=== PATIENT | male | born 1975 | race Caucasian/White ===

== ENCOUNTER 2020-07-16 07:56 | Outpatient (REF) | payer OTHER, SELFPAY ==
--- NOTE | 2020-07-16 08:12 | XR_ITS ---
EXAMINATION: XR SHOULDER, RIGHT CLINICAL INFORMATION: Right arm pain COMPARISON: None TECHNIQUE: AP external rotation, Grashey, scapular Y, and axillary views of the right shoulder. FINDINGS: The bones and soft tissues are normal. No fracture. Glenohumeral and acromioclavicular alignment is anatomic with normal joint space. No abnormal soft tissue calcifications. XR/XR shoulder RT min 2V IMPRESSION: Normal right shoulder.
[2020-07-16 09:35] LABS: MANUAL DIFF FLAG NO
[2020-07-16 09:41] LABS: Basophils Percent Auto 0.7 % (0-2); Eosinophils Absolute Auto 0.1 X10*3/uL (0.0-0.4); Eosinophils Percent Auto 1.9 % (0-4); Hematocrit 42.7 % (42-52); Hemoglobin 14.7 g/dl (14.0-18.0); Imm Gran Abs Auto 0.02 X10*3/uL (0.00-0.03); Imm Gran Pct Auto 0.3 % (0.0-0.4); Lymphocytes Absolute Auto 1.7 X10*3/uL (1.2-4.9); Lymphocytes Percent Auto 28.4 % (20-40); Mean Corpuscular HGB Conc 34.4 g/dl (31.0-36.0); Mean Corpuscular Hemoglobin 30.1 pg (27.0-33.0); Mean Corpuscular Volume 87.3 fL (80-98); Mean Platelet Volume 10.1 fL (9.4-12.4); Monocytes Absolute Auto 0.4 X10*3/uL (0.1-1.2); Monocytes Percent Auto 7.5 % (2-11); Neutrophils Absolute Auto 3.6 X10*3/uL (2.0-8.3); Neutrophils Percent Auto 61.2 % (45-73); Platelet Count 304 X10*3/uL (160-400); Red Blood Count 4.89 X10*6/uL (4.60-5.80); Red Cell Distribution Width 11.9 % (11.0-16.0); White Blood Count 5.9 X10*3/uL (4.8-10.8)
[2020-07-16 10:07] LABS: Anion Gap 12 (12-20); Blood Urea Nitrogen 20 mg/dL (9-16); Calcium 9.1 mg/dL (8.4-10.2); Carbon Dioxide 26 mmol/L (22-29); Chloride 105 mmol/L (96-108); Estimated Glomerular Filt Rate > 60; Glucose Fasting 104 mg/dL (60-99); Potassium 4.2 mmol/l (3.3-5.1); Sodium 139 mmol/L (135-145)
== END 2020-07-16 07:57 | disposition home or self-care (01) ==
LOC: HO.LAB 07:56
PROVIDERS: PCP Physician Assistant; Visit Provider Nurse Practitioner Family
DX: M79.601 Pain in right arm (principal)
CPT/HCPCS: 36415; 73030; 80048; 85025

== ENCOUNTER 2021-09-02 13:04 | Outpatient (REF) | payer OTHER, SELFPAY ==
[2021-09-02 14:31] LABS: Binax Internal Control QC Valid; Binax Lot number: 9864; Binax Now Covid-19 Ag Negative (Negative)
== END 2021-09-02 13:05 | disposition home or self-care (01) ==
LOC: HO.LAB 13:04
PROVIDERS: Visit Provider Internal Medicine
DX: Z20.822 Contact with and (suspected) exposure to COVID-19 (principal)
CPT/HCPCS: 36415; C9803

== ENCOUNTER 2022-07-25 13:44 | Outpatient (REF) | payer OTHER, SELFPAY ==
--- NOTE | ~2022-07-25 | XR_ITS ---
EXAMINATION: XR LUMBOSACRAL SPINE CLINICAL INFORMATION: Low back pain COMPARISON: Previous x-ray most recent February 2018 TECHNIQUE: Three views of the lumbosacral spine. FINDINGS: The vertebral bodies and posterior elements are normal. The disc spaces are preserved and the vertebral alignment is normal. The paraspinal soft tissues are normal. XR/XR lumbar spine 2-3V IMPRESSION: Unremarkable examination.
--- NOTE | ~2022-07-25 | XR_ITS ---
EXAMINATION: XR PELVIS CLINICAL INFORMATION: Pain COMPARISON: None TECHNIQUE: AP view of the pelvis. FINDINGS: Bone alignment is normal. No fracture or dislocation. The hip joints are normal. There is soft tissue calcification or ossification adjacent to the left greater trochanter questionable for trochanteric bursitis or tendinitis. Bones of the pelvis are normal. Soft tissues are otherwise normal. XR/XR pelvis 1-2V IMPRESSION: Soft tissue calcification or ossification adjacent to the left greater trochanter questionable for calcific bursitis or tendinitis.
== END 2022-07-25 13:45 | disposition home or self-care (01) ==
LOC: HO.HMGCX 13:44
PROVIDERS: PCP Physician Assistant; Visit Provider Physician Assistant
DX: M54.50 Low back pain, unspecified (principal); M25.551 Pain in right hip; M25.552 Pain in left hip
CPT/HCPCS: 72100; 72170

== ENCOUNTER 2022-09-25 12:57 | Emergency (ER) | payer OTHER, SELFPAY ==
--- NOTE | 2022-09-25 13:02 | ED.BACK ---
HPI - Back Pain/Injury General Chief Complaint: Back Pain/Injury Stated Complaint: Back pain/leg pain Time Seen by Provider: 09/25/22 13:08 Source: patient and old records reviewed Mode of arrival: ambulatory Limitations: no limitations History of Present Illness HPI Narrative: Year old male presents to the ER for evaluation of acute on chronic low back pain and sciatica. He reports pain started few days ago and got acutely worse today when he went from sitting to standing. He reports the pain starts in his right lower back and gluteal area and shoots down the right leg. Is making it difficult to walk and move around. He reports similar pains when he has had sciatica flare ups in the past. He reports needing to be out of work for 6 months last time. He went through therapy for 4 months. He denies any urinary symptoms, lower extremity weakness, numbness, tingling just shooting and sharp pains. MD elicited complaint: back pain Pertinent past history: prior back pain Onset (ago): day(s) Timing: constant Severity: severe Similar Symptoms Previously: Yes Quality: sharp Location: right lower back Radiation: buttocks and right upper leg Exacerbating factors: movement and walking Relieving factors: medication Context: unknown Associated symptoms: denies other symptoms Work related injury: No Related Data Home Medications Medication Instructions Recorded Confirmed diphenhydramine 25 2 tab PO BEDTIME PRN 07/25/22 mg-acetaminophen 500 mg tablet (Tylenol PM Extra Strength) Previous Rx's Medication Instructions Recorded betamethasone, augmented 0.05 % 1 appl topical DAILY PRN skin 10/07/20 topical ointment (Diprolene irritation 30 days #45 grams (augmented)) benzonatate 200 mg capsule 200 mg PO TID 4 days #12 caps 09/07/21 cyclobenzaprine 5 mg tablet 5 mg PO ONCE 30 days #30 tabs 10/10/21 hydroxyzine HCl 10 mg tablet 10 mg PO BEDTIME 30 days #30 tabs 11/03/21 meloxicam 15 mg tablet 15 mg PO DAILY #30 tabs 02/14/22 omeprazole 20 mg capsule,delayed 20 mg PO DAILY #90 caps 04/17/22 release acetaminophen 300 mg-codeine 30 mg 1 tab PO Q6H PRN pain 4 days #16 07/25/22 tablet tabs cyclobenzaprine 10 mg tablet 10 mg PO BEDTIME 30 days #30 tabs 07/25/22 cyclobenzaprine 10 mg tablet 10 mg PO BEDTIME PRN muscle spasm 07/25/22 #14 tabs lidocaine 4 % topical patch 1 patch topical DAILY PRN pain #15 07/25/22 (AsperFlex (lidocaine)) ea lidocaine 5 % topical patch 1 patch topical DAILY #15 ea 09/25/22 oxycodone 5 mg tablet 5 mg PO Q8H PRN severe pain (scale 09/25/22 score 7-10) #6 tabs prednisone 20 mg tablet 40 mg PO DAILY #10 tabs 09/25/22 Allergies Allergy/AdvReac Type Severity Reaction Status Date / Time aspirin [ASPIRIN] Allergy Unknown ANAPHYLAXIS Verified 09/25/22 13:08 ibuprofen Allergy Unknown Anaphylaxis Verified 09/25/22 13:08 Review of Systems Review of Systems: Yes all other systems are reviewed and are negative [facility] Past Medical History Medical History Right arm pain Surgical History History of drainage of abscess Family History Family History Father Diabetes Hypertension Mother No problems noted. Social History Social History Housing: House Alcohol intake: current Alcohol intake frequency: a few times a month Patient Tobacco Use Status: Never used Tobacco e-Cigarette/Vaping Use: Never Used Substance Use Type: Marijuana Advance Directives: No Advance Directives Information Provided: Yes service: No Current occupational status: employed Current occupation: Work at [employer] Physical Exam Vital Signs: Vital Signs: Last Vital Signs Temp 97.8 F 09/25/22 13:03 Pulse 98 09/25/22 13:03 Resp 16 09/25/22 13:03 BP 135/91 H 09/25/22 13:03 Pulse Ox 99 09/25/22 13:03 O2 Del Method 09/25/22 13:03 BMI result Body Mass Index 25.4 Appearance: Alert. Oriented X3. No acute distress. HEENT: normal inspection Respiratory: No respiratory distress. Skin: Skin warm and dry. Normal skin color. Normal skin turgor. No rashes. Back: normal inspection - tenderness of the SI joint, and associated soft tissues. Extremities: normal inspection, normal ROM. Neuro: Oriented X 3. No motor deficit. No sensory deficit. Antalgic gait Course Course Course Narrative: 47 yo male with history of sciatica who presents with severe 20 out of 10 right lower back pain that radiates down the right leg that started 30 minutes ago when he got up out of a chair. No falls. Difficulty driving due to the pain. Feels like prior episodes of sciatica. In the past had tylenol with codiene and flexeril with good effect. Did not take them because he came here for a work note. NO red flag symptoms for LBP. He is worried this is going to keep him out of work again for 6 months. Instructed to f/u with his PCP. Will d/c with prednisone, PRN oxycodone and lidoderm. Patient agrees with plan. Medical Decision Making Differential Diagnosis Differential Diagnoses: The differential diagnosis associated with the presentation includes sciatica, muscle strain/spasm, DJD, disc herniation, doubt cauda equina syndrome External Record Review External record reviewed: Office record, Outpatient record, Prior outpatient labs and Prior outpatient radiology lumbar spine IMPRESSION: Unremarkable examination. Prescription Management I considered prescription management with: Pain Medication Critical Care Time Critical Care Time Critical Care Time: No Discharge Plan Discharge Clinical Impression: Sciatica Patient Disposition: Home, Self-Care Instructions: Sciatica (ED) Additional Instructions: Rest. No strenuous activity. No bending, lifting or twisting. Use ice several times per day for 20 minutes at a time for the next 48 hours and then change to heat. Take medications as prescribed to help with pain and discomfort. Follow up with your Primary Care Doctor this week. If your pain worsens, if you develop new numbness, tingling, weakness, loss of function or incontinence call 911 or come back to the ER right away for evaluation. [place]. Ninguna actividad extenuante. Sin doblar, levantar o torcer. Use hielo varias veces al d?a kris 20 minutos a la vez kris las pr?ximas 48 horas y luego cambie a calor. [place] los medicamentos seg?n lo prescrito para ayudar con el dolor y la incomodidad. Onel un seguimiento con kam m?dico de atenci?n primaria esta semana. Si kam dolor empeora, si desarrolla un nuevo entumecimiento, hormigueo, debilidad, p?rdida de funci?n o incontinencia, llame al 911 o regrese a la roberth de emergencias de inmediato para kerrie evaluaci?n. Prescriptions: New prednisone 20 mg tablet 40 mg PO DAILY Qty: 10 0RF lidocaine 5 % adhesive patch,medicated 1 patch topical DAILY Qty: 15 0RF Rx Instructions: leave on most painful area for up to 12 hrs oxycodone 5 mg tablet 5 mg PO Q8H PRN (Reason: severe pain (scale score 7-10)) Qty: 6 0RF Rx Instructions: Partial Fill upon patient request. No Action benzonatate 200 mg capsule 200 mg PO TID 4 Days Qty: 12 0RF hydroxyzine HCl 10 mg tablet 10 mg PO BEDTIME 30 Days Qty: 30 3RF meloxicam 15 mg tablet 15 mg PO DAILY Qty: 30 3RF omeprazole 20 mg capsule,delayed release(DR/EC) 20 mg PO DAILY Qty: 90 1RF cyclobenzaprine 10 mg tablet 10 mg PO BEDTIME 30 Days Qty: 30 0RF Rx Instructions: Uses 10 mg tablets during the night acetaminophen-codeine 300-30 mg tablet 1 tab PO Q6H PRN (Reason: pain) 4 Days Qty: 16 0RF cyclobenzaprine 5 mg tablet 5 mg PO ONCE 30 Days Qty: 30 3RF betamethasone, augmented [Diprolene (augmented)] 0.05 % ointment 1 appl topical DAILY PRN (Reason: skin irritation) 30 Days Qty: 45 1RF diphenhydramine-acetaminophen [Tylenol PM Extra Strength] 25-500 mg tablet 2 tab PO BEDTIME PRN cyclobenzaprine 10 mg tablet 10 mg PO BEDTIME PRN (Reason: muscle spasm) Qty: 14 0RF lidocaine [AsperFlex (lidocaine)] 4 % adhesive patch,medicated 1 patch topical DAILY PRN (Reason: pain) Qty: 15 0RF Referrals: Elpidio Covarrubias PA-C [Primary Care Provider] - Stand Alone Forms: Work/School Release Print Language: Bots[place]an
[2022-09-25 13:03] VITALS: BP 135/91; PULSE 98; RESP 16; TEMP 36.6; O2SAT 99; BMI 25.4
[2022-09-25] MEDS: Acetaminophen 325 MG TABLET 975 MG PO (13:14)
[2022-09-25] MEDS: predniSONE 10 MG TABLET 50 MG PO (13:14)
== END 2022-09-25 13:19 | disposition home or self-care (01) ==
PROVIDERS: Emergency Provider Emergency Medicine; PCP Physician Assistant
DX: M54.41 Lumbago with sciatica, right side (principal); F12.90 Cannabis use, unspecified, uncomplicated; Z79.899 Other long term (current) drug therapy
CPT/HCPCS: 99283

== ENCOUNTER 2022-12-27 09:58 | Outpatient (REF) | payer OTHER, SELFPAY ==
[2022-12-27 10:35] LABS: Hematocrit 41.2 % (42.0-52.0); Hemoglobin 13.8 g/dl (14.0-18.0); Mean Corpuscular HGB Conc 33.5 g/dl (31.0-36.0); Mean Corpuscular Hemoglobin 29.4 pg (27.0-33.0); Mean Corpuscular Volume 87.7 fL (80.0-98.0); Mean Platelet Volume 9.5 fL (9.4-12.4); Platelet Count 260 X10*3/uL (160-400); Red Cell Distribution Width 12.5 % (11.0-16.0); White Blood Count 8.9 X10*3/uL (4.8-10.8)
[2022-12-27 11:12] LABS: Alanine Aminotransferase 19 U/L (0-40); Albumin Level 4.3 g/dL (3.5-5.0); Alkaline Phosphatase 79 U/L (39-117); Anion Gap 13 (12-20); Aspartate Amino Transferase 17 U/L (5-37); Blood Urea Nitrogen 14 mg/dL (9-16); Calcium 9.4 mg/dL (8.4-10.2); Carbon Dioxide 28 mmol/L (22-29); Chloride 106 mmol/L (96-108); Estimated Glomerular Filt Rate > 60; Glucose Fasting 105 mg/dL (60-99); Magnesium 2.1 mg/dL (1.6-2.6); Potassium 4.5 mmol/L (3.3-5.1); Sodium 142 mmol/L (135-145); Total Protein 7.7 g/dL (6.5-8.0)
[2022-12-27 11:30] LABS: Prostate Specific Antigen Scr 0.74 ng/mL (<0.05-4.0)
[2022-12-27 11:43] LABS: Erythrocyte Sedimentation Rate 40 MM/HR (0-15)
[2022-12-29 15:58] LABS: CRP High Sensitivity >10.0 mg/L
== END 2022-12-27 09:59 | disposition home or self-care (01) ==
LOC: HO.LAB 09:58
PROVIDERS: PCP Physician Assistant; Visit Provider Physician Assistant
DX: Z13.1 Encounter for screening for diabetes mellitus (principal); Z12.5 Encounter for screening for malignant neoplasm of prostate; R19.7 Diarrhea, unspecified
CPT/HCPCS: 36415; 80053; 83735; 84153; 85027; 85652; 86141

== ENCOUNTER 2023-03-01 08:27 | Outpatient (REF) | payer OTHER, SELFPAY ==
--- NOTE | ~2023-03-01 | XR_ITS ---
EXAMINATION: XR SHOULDER, LEFT CLINICAL INFORMATION: Pain status-post injury. COMPARISON: Radiographs dated 09/12/2017. TECHNIQUE: AP external rotation, Grashey, scapular Y, and axillary views of the left shoulder. FINDINGS: The bones and soft tissues are normal. No fracture. Glenohumeral and acromioclavicular alignment is anatomic with normal joint space. A small sclerotic bone island is redemonstrated within the left humeral head. No abnormal soft tissue calcifications. XR/XR shoulder LT min 2V IMPRESSION: Normal left shoulder.
--- NOTE | ~2023-03-01 | CT_ITS ---
EXAMINATION: CT ABDOMEN AND PELVIS WITH CONTRAST CLINICAL INFORMATION: Acute diarrhea and lower abdominal pain. Concern for diverticulitis. COMPARISON: CT abdomen pelvis 06/08/2017 TECHNIQUE: Multidetector volumetric images were obtained from the superior aspect of the liver through the pubic symphysis following administration 85 mL of Omnipaque 350 intravenous contrast. Sagittal and coronal reformatted images were obtained on the technologist's workstation. Oral contrast: No This CT examination was performed using dose optimization techniques as appropriate, variously including the following: *Automated exposure control *Adjustment of mA and/or kV according to patient size (this includes techniques or standardized protocols for targeted exams where dose is matched to indication/reason for exam; i.e. extremities or head) *Use of iterative reconstruction technique DLP: 269 mGy-cm FINDINGS: Visualized lung bases are well aerated. The liver demonstrates normal size, contour and attenuation. The gallbladder is normal in appearance. The pancreas, spleen and adrenal glands are unremarkable. Symmetrically enhancing kidneys. There is no hydronephrosis of either kidney. Normal caliber loops of small and large bowel. Mild to moderate colonic stool burden. Normal appendix. Moderate colonic diverticulosis. No CT evidence to suggest active diverticulitis. Normal caliber abdominal aorta. No retroperitoneal lymphadenopathy. The bladder demonstrates mild diffuse circumferential wall thickening. The prostate gland is at the upper limits of normal in size. No gross free pelvic fluid. No inguinal lymphadenopathy. Small fat-containing left inguinal hernia. Mild degenerative changes of the spine. CT/CT abdomen pelvis w IV con IMPRESSION: 1. Colonic diverticulosis without CT evidence to suggest active diverticulitis. 2. Mild to moderate colonic stool burden. 3. Mild diffuse circumferential bladder wall thickening, nonspecific. Fleischner guidelines were followed.
[2023-03-01] MEDS: iohexoL 350 MG/ML 100 ML INFUS..BTL IV (09:16)
== END 2023-03-01 08:28 | disposition home or self-care (01) ==
LOC: HO.CT 08:27
PROVIDERS: PCP Physician Assistant; Visit Provider Physician Assistant
DX: R19.7 Diarrhea, unspecified (principal); M25.512 Pain in left shoulder
CPT/HCPCS: 73030; 74177; Q9967

== ENCOUNTER 2023-05-03 12:25 | Outpatient (REF) | payer OTHER, SELFPAY | END 2023-05-03 12:26 | disposition home or self-care (01) | LOC: HO.US 12:25 | PROVIDERS: PCP Physician Assistant; Visit Provider Physician Assistant | DX: Z13.89 Encounter for screening for other disorder (principal) ==

== ENCOUNTER 2023-06-07 14:58 | Outpatient (REF) | payer OTHER, SELFPAY ==
--- NOTE | ~2023-06-07 | US_ITS ---
EXAMINATION: US PELVIS LIMITED (BLADDER) CLINICAL INFORMATION: Bladder wall thickening. COMPARISON: CT abdomen/pelvis 03/01/2023. TECHNIQUE: Real-time imaging of the bladder. FINDINGS: BLADDER: Well distended with redemonstration of mild diffuse wall thickening. Bilateral ureteral jets are demonstrated. Prevoid bladder volume is 267.7 mL. Postvoid bladder volume is 33.6 mL. Prostate volume is 18.0 mL with scattered calcifications. US/US bladder IMPRESSION: Mild diffuse wall thickening of the urinary bladder. Mild increased post void volume of 34 mL. Recommend clinical correlation for outlet obstruction.
== END 2023-06-07 14:59 | disposition home or self-care (01) ==
LOC: HO.US 14:58
PROVIDERS: PCP Physician Assistant; Visit Provider Physician Assistant
DX: R10.2 Pelvic and perineal pain (principal); N32.89 Other specified disorders of bladder
CPT/HCPCS: 76857

== ENCOUNTER 2023-07-02 10:08 | Emergency (ER) | payer OTHER, SELFPAY ==
--- NOTE | ~2023-07-02 | CT_ITS ---
EXAMINATION: CT ABDOMEN AND PELVIS WITHOUT CONTRAST CLINICAL INFORMATION: Lower abdominal pain. COMPARISON: 03/01/2023 TECHNIQUE: Multidetector volumetric imaging was performed from the superior aspect of the liver through the pubic symphysis. Sagittal and coronal reformatted images were obtained on the technologist's workstation. This CT examination was performed using dose optimization techniques as appropriate, variously including the following: *Automated exposure control *Adjustment of mA and/or kV according to patient size (this includes techniques or standardized protocols for targeted exams where dose is matched to indication/reason for exam; i.e. extremities or head) *Use of iterative reconstruction technique DLP: 389 mGy-cm FINDINGS: LUNG BASES: The visualized lung bases are unremarkable. LIVER, GALLBLADDER, AND BILIARY TREE: The noncontrast liver is normal in size, shape, and attenuation. No biliary ductal dilatation is present. The gallbladder is unremarkable with no evidence of radiopaque gallstones, gallbladder wall thickening, or obvious pericholecystic inflammatory changes. PANCREAS: Unremarkable. SPLEEN: Unremarkable. ADRENAL GLANDS: Unremarkable. KIDNEYS AND URETERS: The kidneys are normal in size, shape, and attenuation. No hydronephrosis, hydroureter, or calculi seen. No perinephric stranding. BLADDER: Unremarkable. GASTROINTESTINAL TRACT: Wall thickening of the mid sigmoid colon possibly related to hypertrophic changes. There is underlying diverticular disease. No surrounding pericolonic inflammatory change. No small bowel obstruction. ABDOMINAL WALL: No significant hernia is appreciated. LYMPH NODES: No bulky lymphadenopathy. VASCULAR: Unremarkable. PELVIC VISCERA: Unremarkable. OSSEOUS STRUCTURES: No destructive bone lesions. CT/CT abdomen pelvis wo IV con IMPRESSION: Wall thickening of the mid sigmoid colon possibly related to hypertrophic changes in the setting of diverticulosis. No surrounding pericolonic inflammatory change. Correlation with direct visualization may be considered in the appropriate clinical setting.
[2023-07-02 10:11] VITALS: BP 160/93; PULSE 90; RESP 18; TEMP 36.5; O2SAT 98; BMI 24.6
[2023-07-02 11:35] VITALS: BP 162/95; PULSE 65; RESP 18; O2SAT 97
[2023-07-02 12:03] LABS: MANUAL DIFF FLAG NO
[2023-07-02 12:05] LABS: Appearance Urine Clear; Color Urine Yellow; Glucose Urine UA Negative (Negative); Leukocyte Esterase Urine Trace (Negative); Nitrite Urine Negative (Negative); PH 7.5 (5.0-9.0); Specific Gravity - Urine 1.025 (1.005-1.025); UMIC TRIGGER UACC YES; Urine Blood Moderate (2+) (Negative); Urine Ketones Negative (Negative); Urine Protein Trace mg/dL (Neg-Trace)
[2023-07-02 12:07] LABS: Basophils Absolute Auto 0.1 X10*3/uL (0.0-0.2); Basophils Percent Auto 0.7 % (0-2); Eosinophils Absolute Auto 0.1 X10*3/uL (0.0-0.4); Eosinophils Percent Auto 0.8 % (0-4); Hematocrit 45.2 % (42.0-52.0); Hemoglobin 15.3 g/dl (14.0-18.0); Imm Gran Abs Auto 0.03 X10*3/uL (0.00-0.03); Imm Gran Pct Auto 0.4 % (0.0-0.4); Lymphocytes Absolute Auto 1.5 X10*3/uL (1.2-4.9); Lymphocytes Percent Auto 17.6 % (20-40); Mean Corpuscular HGB Conc 33.8 g/dl (31.0-36.0); Mean Corpuscular Hemoglobin 29.4 pg (27.0-33.0); Mean Corpuscular Volume 86.8 fL (80.0-98.0); Monocytes Absolute Auto 0.6 X10*3/uL (0.1-1.2); Monocytes Percent Auto 7.5 % (2-11); Neutrophils Absolute Auto 6.2 x10*3/uL (2.0-8.3); Platelet Count 298 X10*3/uL (160-400); Red Blood Count 5.21 X10*6/uL (4.60-5.80); Red Cell Distribution Width 12.3 % (11.0-16.0); White Blood Count 8.5 X10*3/uL (4.8-10.8)
[2023-07-02 12:19] LABS: Alanine Aminotransferase 23 U/L (0-40); Albumin Level 4.5 g/dL (3.5-5.0); Alkaline Phosphatase 90 U/L (39-117); Anion Gap 14 (12-20); Aspartate Amino Transferase 26 U/L (5-37); Bilirubin Total 0.8 mg/dL (0.0-1.0); Blood Urea Nitrogen 13 mg/dL (9-16); Calcium 10.2 mg/dL (8.4-10.2); Carbon Dioxide 26 mmol/L (22-29); Chloride 103 mmol/L (96-108); Estimated Glomerular Filt Rate > 60; Glucose Random 108 mg/dL (60-115); Lipase 32 U/L (8-78); Potassium 4.3 mmol/L (3.3-5.1); Sodium 139 mmol/L (135-145); Total Protein 8.7 g/dL (6.5-8.0)
[2023-07-02 12:20] LABS: Bacteria Urine None Seen (None Seen); Hyaline Casts Urine 0-2 /LPF (0-2); RBC Urine >20 /HPF (0-2); Squamous Epithelial Cell Urine 0-2 /HPF (0-2); WBC Urine 0-5 /HPF (0-5)
[2023-07-02 13:10] LABS: OBS Int Ctl Valid YES; OBS1 NEGATIVE (NEGATIVE)
[2023-07-02] MEDS: Magnesium Hydrox/Alum Hydrox 30 ML ORAL.SUSP PO (13:10)
[2023-07-02] MEDS: Lidocaine HCl Viscous 2 % 15 ML SOLUTION 10 ML MUCOUS MEM (13:10)
--- NOTE | 2023-07-02 14:06 | ED_ITS ---
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 Patient also states that he has intermittent diarrhea. Patient endorses that on he began having epigastric pain and then started with diarrhea, there is a possibility this started after eating [employer]. Patient states he felt good Sunday and Sunday but then again yesterday began having epigastric pain with multiple episodes of diarrhea the last of which was this morning and he states that he turned around and looked in the toilet bowl and noticed that there is blood but denies any blood present on either his underwear or the toilet paper. Related Data Previous Rx's Medication Instructions Recorded betamethasone, augmented 0.05 % 1 appl topical DAILY PRN skin 10/07/20 topical ointment (Diprolene irritation 30 days #45 grams (augmented)) lidocaine 5 % topical patch 1 patch topical DAILY #15 ea 09/25/22 acetaminophen 300 mg-codeine 30 mg 1 tab PO Q6H PRN pain 4 days #16 12/26/22 tablet tabs ciprofloxacin HCl 500 mg tablet 500 mg PO BID 10 days #20 tabs 12/26/22 cyclobenzaprine 10 mg tablet 10 mg PO BEDTIME 30 days #30 tabs 12/26/22 magnesium oxide 400 mg PO DAILY 30 days #30 tabs 12/26/22 metronidazole 500 mg tablet 500 mg PO BID 10 days #20 tabs 12/26/22 omeprazole 20 mg capsule,delayed 20 mg PO DAILY #90 caps 12/26/22 release Allergies Allergy/AdvReac Type Severity Reaction Status Date / Time aspirin [ASPIRIN] Allergy Unknown ANAPHYLAXIS Verified 07/02/23 10:13 ibuprofen Allergy Unknown Anaphylaxis Verified 07/02/23 10:13 Review of Systems 2 Review of Systems: Pertinent positives and negatives as stated in HPI [facility] Past Medical History Source: nursing notes reviewed Medical History Right arm pain Surgical History History of drainage of abscess Family History Family History Father Diabetes Hypertension Mother No problems noted. Social History Social History Housing: House Alcohol intake: current Alcohol intake frequency: a few times a month Patient Tobacco Use Status: Never used Tobacco e-Cigarette/Vaping Use: Never Used Second Hand Smoke Exposure: No Substance Use Type: Marijuana Advance Directives: No service: No Current occupational status: employed Current occupation: Work at [employer] Cognitive needs: No Hearing needs: No Vision needs: No Physical Exam ED Vital Signs: Vital Signs - 24 hr 07/02/23 10:11 07/02/23 11:35 Temperature 97.7 F Pulse Rate 90 65 Respiratory Rate 18 18 Blood Pressure 160/93 H 162/95 H Pulse Oximetry 98 97 Oxygen Delivery Method Room Air Room Air BMI result Body Mass Index 24.6 VITAL SIGNS: Reviewed. GENERAL: Well developed, well nourished, in no acute distress. HEAD: Normocephalic/atraumatic EYES: PERRLA, EOMI EARS: Ext canals without abnormality NOSE: Nares patent bilateral OROPHARYNX: no oral lesions noted, posterior pharynx clear NECK: Supple, no adenopathy LUNGS: Normal breath sounds. No adventitious sounds or accessory muscle use. SpO2<97> CARDIOVASCULAR: Regular rate and rhythm without noted murmur ABDOMEN: Soft, non-tender, non-distended with bowel sounds. 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 EXTREMITIES: No cyanosis, clubbing or edema. SKIN: Inspection of the skin reveals no rashes NEUROLOGIC: Alert and oriented x 4. Strength and sensation to light touch were grossly intact x 4. Medications Administered Discontinued Medications Generic Name Dose Route Start Last Admin Trade Name Freq PRN Reason Stop Dose Admin Al Hydroxide/Mg Hydroxide 30 ml 07/02/23 12:50 07/02/23 13:10 Magnesium Hydrox/Alum Hydrox 30 Ml Oral.Susp PO 07/02/23 12:51 30 ml ONCE ONE Administration Lidocaine HCl 10 ml 07/02/23 12:50 07/02/23 13:10 Lidocaine Hcl Viscous 2 % 15 Ml Solution MUCOUS MEM 07/02/23 12:51 10 ml ONCE ONE Administration Medical Decision Making Medical Decision Making [facility] Narrative: 48-year-old male with history and clinical presentation, DDX: IBS, food contamination, a viral gastroenteritis. Patient received GI cocktail I reviewed all investigations and hematologic indices are negative for leukocytosis or left shift, there is no anemia or thrombocytopenia. Chemistry indices are grossly within normal limits without JORDAN and there is no electrolyte or liver enzyme abnormalities. Lipase is within normal limits. Urinalysis is significant for hematuria and given patient's complaints about lower abdominal discomfort associated with nausea will evaluate for the possibility of renal colic. Signed out to Dr Haile - f/u CT scan to r/o renal stones. Differential Diagnosis Differential Diagnoses: The differential diagnosis associated with the presentation includes please see the discussion above Admission/Observation Consideration of admission/observation: Escalation of care including admission/observation considered please see the discussion above Lab Data [facility] Lab Attestation statement: I reviewed the patient's lab results. please see the discussion above 07/02/23 11:55 07/02/23 11:55 Labs: Lab Results 07/02/23 07/02/23 07/02/23 Range/Units 11:55 11:56 13:03 WBC 8.5 (4.8-10.8) X10*3/uL RBC 5.21 (4.60-5.80) X10*6/uL Hgb 15.3 (14.0-18.0) g/dl Hct 45.2 (42.0-52.0) % MCV 86.8 (80.0-98.0) fL MCH 29.4 (27.0-33.0) pg MCHC 33.8 (31.0-36.0) g/dl RDW 12.3 (11.0-16.0) % Plt Count 298 (160-400) X10*3/uL MPV 9.0 L (9.4-12.4) fL Immature Gran % (Auto) 0.4 (0.0-0.4) % Neut % (Auto) 73.0 (45-73) % Lymph % (Auto) 17.6 L (20-40) % Jay % (Auto) 7.5 (2-11) % Eos % (Auto) 0.8 (0-4) % Baso % (Auto) 0.7 (0-2) % Lymph # (Auto) 1.5 (1.2-4.9) X10*3/uL Jay # (Auto) 0.6 (0.1-1.2) X10*3/uL Eos # (Auto) 0.1 (0.0-0.4) X10*3/uL Baso # (Auto) 0.1 (0.0-0.2) X10*3/uL Abs Immat Gran (auto) 0.03 (0.00-0.03) X10*3/uL Absolute Neuts (auto) 6.2 (2.0-8.3) x10*3/uL Absolute Nucleated RBC 0.000 (0.0-0.012) X10*3/uL Nucleated RBC % (auto) 0.0 (0.0-0.2) /100WBC Sodium 139 (135-145) mmol/L Potassium 4.3 (3.3-5.1) mmol/L Chloride 103 (96-108) mmol/L Carbon Dioxide 26 (22-29) mmol/L Anion Gap 14 (12-20) BUN 13 (9-16) mg/dL Creatinine 1.10 (0.5-1.4) mg/dL Estim Creat Clear Calc 68.0 Estimated GFR > 60 Random Glucose 108 (60-115) mg/dL Calcium 10.2 D (8.4-10.2) mg/dL Total Bilirubin 0.8 (0.0-1.0) mg/dL AST 26 (5-37) U/L ALT 23 (0-40) U/L Alkaline Phosphatase 90 (39-117) U/L Total Protein 8.7 H (6.5-8.0) g/dL Albumin 4.5 (3.5-5.0) g/dL Lipase 32 (8-78) U/L Urine Color Yellow Urine Appearance Clear Urine pH 7.5 (5.0-9.0) Ur Specific [place] 1.025 (1.005-1.025) Urine Protein Trace (Neg-Trace) mg/dL Urine Glucose (UA) Negative (Negative) mg/dL Urine Ketones Negative (Negative) mg/dL Urine Blood Moderate (2+) H (Negative) Urine Nitrite Negative (Negative) Ur Leukocyte Esterase Trace H (Negative) Urine RBC >20 H (0-2) /HPF Urine WBC 0-5 (0-5) /HPF Ur Squamous Epith Cells 0-2 (0-2) /HPF Urine Bacteria None Seen (None Seen) Hyaline Casts 0-2 (0-2) /LPF Stool Occult Blood NEGATIVE (NEGATIVE) Discharge Plan Discharge Clinical Impression: Abdominal pain, lower Patient Disposition: Still a Patient Prescriptions: No Action omeprazole 20 mg capsule,delayed release(DR/EC) 20 mg PO DAILY Qty: 90 1RF cyclobenzaprine 10 mg tablet 10 mg PO BEDTIME 30 Days Qty: 30 0RF Rx Instructions: Uses 10 mg tablets during the night acetaminophen-codeine 300-30 mg tablet 1 tab PO Q6H PRN (Reason: pain) 4 Days Qty: 16 0RF lidocaine 5 % adhesive patch,medicated 1 patch topical DAILY Qty: 15 0RF Rx Instructions: leave on most painful area for up to 12 hrs betamethasone, augmented [Diprolene (augmented)] 0.05 % ointment 1 appl topical DAILY PRN (Reason: skin irritation) 30 Days Qty: 45 1RF metronidazole 500 mg tablet 500 mg PO BID 10 Days Qty: 20 0RF ciprofloxacin HCl 500 mg tablet 500 mg PO BID 10 Days Qty: 20 0RF magnesium oxide 400 mg magnesium tablet 400 mg PO DAILY 30 Days Qty: 30 1RF Referrals: Reynaldo Prater MD [Physician] - (Hematuria, bladder wall thickening) Elpidio Covarrubias PA-C [Primary Care Provider] - John Padilla MD [Physician] - (chronic IBS-like symptoms) Print Language: Portuguese
[2023-07-02 16:39] VITALS: BP 132/98; PULSE 75; RESP 16; O2SAT 94
[2023-07-02] MEDS: Dicyclomine HCl 10 MG CAPSULE 20 MG PO (17:37)
[2023-07-03 12:11] LABS: Adenovirus F 40/41 Not Detected (Not Detect.); Astrovirus Not Detected (Not Detect.); Campylobacter Not Detected (Not Detect.); Cryptosporidium Not Detected (Not Detect.); Cyclospora cayetanensis Not Detected (Not Detect.); E. coli EAEC Not Detected (Not Detect.); E. coli EPEC Not Detected (Not Detect.); E. coli ETEC Not Detected (Not Detect.); E. coli STEC Not Detected (Not Detect.); Entamoeba histolytica Not Detected (Not Detect.); Giardia lamblia Not Detected (Not Detect.); Norovirus GI/GII Not Detected (Not Detect.); Plesiomonas shigelloides Not Detected (Not Detect.); Rotavirus A Not Detected (Not Detect.); Salmonella Not Detected (Not Detect.); Sapovirus Not Detected (Not Detect.); Shigella sp./EIEC Not Detected (Not Detect.); Vibrio Not Detected (Not Detect.); Vibrio Cholerae Not Detected (Not Detect.); Yersinia enterocolitica Not Detected (Not Detect.)
== END 2023-07-02 17:49 | disposition home or self-care (01) ==
PROVIDERS: Student in an Organized Health Care Education/Training Program; Emergency Provider Internal Medicine; PCP Physician Assistant
DX: R10.2 Pelvic and perineal pain (principal); R10.13 Epigastric pain; Z79.899 Other long term (current) drug therapy; Z11.52 Encounter for screening for COVID-19; Z20.822 Contact with and (suspected) exposure to COVID-19
CPT/HCPCS: 36415; 74176; 80053; 81001; 82272; 83690; 85025; 87507; 99283; 99284

== ENCOUNTER 2023-07-05 09:45 | Emergency (ER) | payer OTHER, SELFPAY ==
[2023-07-05 09:47] VITALS: BP 163/113; PULSE 87; RESP 20; TEMP 37.1; O2SAT 99; BMI 24.7
[2023-07-05 10:02] LABS: Basophils Percent Auto 0.7 % (0-2); Eosinophils Percent Auto 0.5 % (0-4); Hemoglobin 15.7 g/dl (14.0-18.0); Imm Gran Abs Auto 0.02 X10*3/uL (0.00-0.03); Imm Gran Pct Auto 0.5 % (0.0-0.4); Lymphocytes Absolute Auto 1.3 X10*3/uL (1.2-4.9); Lymphocytes Percent Auto 29.5 % (20-40); MANUAL DIFF FLAG SCAN; Mean Corpuscular HGB Conc 34.1 g/dl (31.0-36.0); Mean Corpuscular Hemoglobin 29.8 pg (27.0-33.0); Mean Corpuscular Volume 87.5 fL (80.0-98.0); Mean Platelet Volume 9.1 fL (9.4-12.4); Monocytes Absolute Auto 0.9 X10*3/uL (0.1-1.2); Monocytes Percent Auto 20.2 % (2-11); Neutrophils Absolute Auto 2.1 x10*3/uL (2.0-8.3); Neutrophils Percent Auto 48.6 % (45-73); Platelet Count 220 X10*3/uL (160-400); Red Blood Count 5.26 X10*6/uL (4.60-5.80); Red Cell Distribution Width 12.4 % (11.0-16.0); SCAN SMEAR FLAG 1; White Blood Count 4.3 X10*3/uL (4.8-10.8)
[2023-07-05 10:15] LABS: Alanine Aminotransferase 21 U/L (0-40); Albumin Level 4.4 g/dL (3.5-5.0); Alkaline Phosphatase 89 U/L (39-117); Anion Gap 14 (12-20); Aspartate Amino Transferase 22 U/L (5-37); Bilirubin Direct < 0.2 mg/dL (0.0-0.5); Bilirubin Total 0.2 mg/dL (0.0-1.0); Blood Urea Nitrogen 12 mg/dL (9-16); COVID-19 Test Negative (Negative); Calcium 9.6 mg/dL (8.4-10.2); Carbon Dioxide 24 mmol/L (22-29); Chloride 105 mmol/L (96-108); Creatinine Clr Calc Pharmacy 77.9; Estimated Glomerular Filt Rate > 60; Glucose Random 98 mg/dL (60-115); IDNOW Serial# 08D9AD1C; Lipase 30 U/L (8-78); Potassium 4.2 mmol/L (3.3-5.1); Sodium 139 mmol/L (135-145); Total Protein 8.5 g/dL (6.5-8.0)
[2023-07-05 10:19] LABS: SLIDE REVIEW VERIFIED
[2023-07-05 10:21] LABS: IDNOW Serial# BCCEAD1C; Influenza A Negative (Negative); Influenza B2 Negative (Negative)
--- NOTE | 2023-07-05 10:35 | ED.NAVMDI ---
HPI - Nausea/Vomiting/Diarrhea General Chief complaint: Nausea/Vomiting/Diarrhea Stated complaint: vomiting Time Seen by Provider: 07/05/23 10:32 Source: patient and assistant paralegal Mode of arrival: ambulatory Limitations: no limitations History of Present Illness HPI Narrative: 48 yo male with PMH of GERD,just seen on 07/02 for n/v/d and abdominal cramps denies travel, sick contacts, antibiotic use, food exposures. He notes he still has some nausea , poor appetite, diarrhea 3 times a day, and just doesn't feel great. This has never happened before. He had fevers Sunday but they resolved. MD elicited complaint: nausea, diarrhea and abdominal pain Onset (ago): day(s) (3) Associated nausea: Yes Associated abdominal pain: Yes Location of pain: diffuse Radiation: diffuse Pain consistency: intermittent Severity: mild Quality: dull Exacerbating factors: eating Relieving factors: none Associated symptoms: fever/chills, loss of appetite, nausea/vomiting and other (diarrhea) Related Data Previous Rx's Medication Instructions Recorded betamethasone, augmented 0.05 % 1 appl topical DAILY PRN skin 10/07/20 topical ointment (Diprolene irritation 30 days #45 grams (augmented)) lidocaine 5 % topical patch 1 patch topical DAILY #15 ea 09/25/22 acetaminophen 300 mg-codeine 30 mg 1 tab PO Q6H PRN pain 4 days #16 12/26/22 tablet tabs ciprofloxacin HCl 500 mg tablet 500 mg PO BID 10 days #20 tabs 12/26/22 cyclobenzaprine 10 mg tablet 10 mg PO BEDTIME 30 days #30 tabs 12/26/22 magnesium oxide 400 mg PO DAILY 30 days #30 tabs 12/26/22 metronidazole 500 mg tablet 500 mg PO BID 10 days #20 tabs 12/26/22 omeprazole 20 mg capsule,delayed 20 mg PO DAILY #90 caps 12/26/22 release dicyclomine 20 mg tablet 20 mg PO QID PRN abdominal pain 07/02/23 #20 tabs levofloxacin 500 mg tablet 500 mg PO DAILY #7 tabs 07/05/23 metronidazole 500 mg tablet 500 mg PO BID 7 days #14 tabs 07/05/23 ondansetron 4 mg disintegrating 4 mg PO Q8H PRN nausea and 07/05/23 tablet vomiting #20 tabs Allergies Allergy/AdvReac Type Severity Reaction Status Date / Time aspirin [ASPIRIN] Allergy Unknown ANAPHYLAXIS Verified 07/02/23 10:13 ibuprofen Allergy Unknown Anaphylaxis Verified 07/02/23 10:13 Review of Systems Review of Systems: Constitutional : No Weight loss, No Fever, pos Chills ENT/Mouth : No sore throat, No Rhinorrhea Eyes: No Swelling, No Redness Cardiovascular : No Chest Pain, No SOB, NoEdema Respiratory : No Cough, No Sputum, No Wheezing Gastrointestinal : Positive Nausea, no Vomiting, positive Diarrhea, positive abdominal Pain, No Hematochezia, No Melena Genitourinary : No Dysuria, No Urinary Frequency, No Hematuria, No Urgency Musculoskeletal : No joint pain, No Myalgias, No Joint Swelling Skin : No Skin Lesions, No rash Neuro : No Weakness, No Numbness, No Dizziness, No Headache Psych : No Anxiety/Panic, No Depression All other systems reviewed and are negative. Gastrointestinal: Gastrointestinal: Reports nausea PMFSH Past Medical History Attestation statement: The following information was validated with the patient. Source: old records reviewed Medical History MDD (major depressive disorder), recurrent episode, mild Insomnia Bronchitis Right arm pain Surgical History History of drainage of abscess Family History Family History Father Diabetes Hypertension Mother No problems noted. Social History Social History Housing: House Alcohol intake: current Alcohol intake frequency: a few times a month Patient Tobacco Use Status: Never used Tobacco e-Cigarette/Vaping Use: Never Used Second Hand Smoke Exposure: No Substance Use Type: Marijuana Advance Directives: No service: No Current occupational status: employed Current occupation: Work at [employer] Cognitive needs: No Hearing needs: No Vision needs: No Physical Exam Vital Signs: Vital Signs: Last Vital Signs Temp 98.8 F 07/05/23 09:47 Pulse 87 07/05/23 09:47 Resp 20 07/05/23 09:47 BP 163/113 H 07/05/23 09:47 Pulse Ox 99 07/05/23 09:47 O2 Del Method Room Air 07/05/23 09:47 BMI result Body Mass Index 24.7 Appearance: Alert. Oriented X3. No acute distress. Eyes: Pupils equal, round and reactive to light. ENT: Pharynx normal. Neck: Normal inspection. Neck supple. CVS: Normal heart rate and rhythm. Pulses normal. Respiratory: No respiratory distress. Breath sounds normal. Abdomen: Soft and very minimal LLQ pain but no rebound or guarding Skin: Skin warm and dry. Normal skin color. Normal skin turgor. Extremities: No lower extremity edema. No calf ttp Neuro: Oriented X 3. No motor deficit. No sensory deficit. Course Course Course Narrative: no diarrhea here, labs reassuring, eating but has abdominal pain clinically likely diverticulitis or colitis. I am going to start treatment for diverticulitis based off his symptoms VS stable no WBC count doubt abscess doubt cdiff unable to provide stool sample Medical Decision Making Medical Decision Making [facility] Narrative: 48 yo male just seen for diarrhea and abdominal pain vomiting and fevers have resolved but has pain in abdomen and 3 to 4 stools a day - he had a negative GI panel though no cdiff testing. He had CT scan which showed possible sigmoid thickening. At this time will repeat labs and send off cdiff. If negative possible colitis/diverticulitis. If WBC count higher may need repeat imaging but overall abdominal exam is benign. Differential Diagnosis Differential Diagnoses: The differential diagnosis associated with the presentation includes colitis, viral syndrome, diverticulitis Admission/Observation Consideration of admission/observation: Escalation of care including admission/observation considered tolerating PO, labs stable Lab Data [facility] Lab Attestation statement: I reviewed the patient's lab results. 07/05/23 09:56 07/05/23 09:56 Labs: Lab Results 07/05/23 Range/Units 09:56 WBC 4.3 L (4.8-10.8) X10*3/uL RBC 5.26 (4.60-5.80) X10*6/uL Hgb 15.7 (14.0-18.0) g/dl Hct 46.0 (42.0-52.0) % MCV 87.5 (80.0-98.0) fL MCH 29.8 (27.0-33.0) pg MCHC 34.1 (31.0-36.0) g/dl RDW 12.4 (11.0-16.0) % Plt Count 220 D (160-400) X10*3/uL MPV 9.1 L (9.4-12.4) fL Immature Gran % (Auto) 0.5 H (0.0-0.4) % Neut % (Auto) 48.6 (45-73) % Lymph % (Auto) 29.5 (20-40) % [place]ent % (Auto) 20.2 H (2-11) % Eos % (Auto) 0.5 (0-4) % Baso % (Auto) 0.7 (0-2) % Lymph # (Auto) 1.3 (1.2-4.9) X10*3/uL [place] # (Auto) 0.9 (0.1-1.2) X10*3/uL Eos # (Auto) 0.0 (0.0-0.4) X10*3/uL Baso # (Auto) 0.0 (0.0-0.2) X10*3/uL Abs Immat Gran (auto) 0.02 (0.00-0.03) X10*3/uL Absolute Neuts (auto) 2.1 (2.0-8.3) x10*3/uL Absolute Nucleated RBC 0.000 (0.0-0.012) X10*3/uL Nucleated RBC % (auto) 0.0 (0.0-0.2) /100WBC Smear Tech's Comments VERIFIED Sodium 139 (135-145) mmol/L Potassium 4.2 (3.3-5.1) mmol/L Chloride 105 (96-108) mmol/L Carbon Dioxide 24 (22-29) mmol/L Anion Gap 14 (12-20) BUN 12 (9-16) mg/dL Creatinine 0.96 (0.5-1.4) mg/dL Estim Creat Clear Calc 77.9 Estimated GFR > 60 Random Glucose 98 (60-115) mg/dL Calcium 9.6 (8.4-10.2) mg/dL Total Bilirubin 0.2 (0.0-1.0) mg/dL Direct Bilirubin < 0.2 (0.0-0.5) mg/dL AST 22 (5-37) U/L ALT 21 (0-40) U/L Alkaline Phosphatase 89 (39-117) U/L Total Protein 8.5 H (6.5-8.0) g/dL Albumin 4.4 (3.5-5.0) g/dL Lipase 30 (8-78) U/L COVID-19 (ERIC) Negative (Negative) COVID-19 Clin Com See Note Influenza Type A (ANKIT) Negative (Negative) Influenza Type B (ANKIT) Negative (Negative) Influenza A & B Note See Note Independent Interpretation I performed an independent interpretation of an: CT Scan External Record Review External record reviewed: Inpatient record Prescription Management I considered prescription management with: Antibiotic and Other Discharge Plan Discharge Clinical Impression: Diverticulitis Patient Disposition: Home, Self-Care Instructions: Diverticulitis (ED) Additional Instructions: return for fevers, vomiting, black or bloody stools, take a probiotic while on antibiotics. on flagyl avoid alcohol eat with a meal and liquids. on levofloxacin avoid crossfit and strenuous exercise - you can injure your tendons. regrese si tiene fiebre, v?mitos, heces negras o con efra, tome un probi?damion mientras tamra antibi?ticos. Si tamra flagyl, evite consumir alcohol con las comidas y l?quidos. Mientras tamra levofloxacina, evite el crossfit y el ejercicio extenuante, ya que puede lesionarse los tendones. Prescriptions: New ondansetron 4 mg tablet,disintegrating 4 mg PO Q8H PRN (Reason: nausea and vomiting) Qty: 20 0RF metronidazole 500 mg tablet 500 mg PO BID 7 Days Qty: 14 0RF levofloxacin 500 mg tablet 500 mg PO DAILY Qty: 7 0RF No Action omeprazole 20 mg capsule,delayed release(DR/EC) 20 mg PO DAILY Qty: 90 1RF cyclobenzaprine 10 mg tablet 10 mg PO BEDTIME 30 Days Qty: 30 0RF Rx Instructions: Uses 10 mg tablets during the night acetaminophen-codeine 300-30 mg tablet 1 tab PO Q6H PRN (Reason: pain) 4 Days Qty: 16 0RF lidocaine 5 % adhesive patch,medicated 1 patch topical DAILY Qty: 15 0RF Rx Instructions: leave on most painful area for up to 12 hrs dicyclomine 20 mg tablet 20 mg PO QID PRN (Reason: abdominal pain) Qty: 20 0RF betamethasone, augmented [Diprolene (augmented)] 0.05 % ointment 1 appl topical DAILY PRN (Reason: skin irritation) 30 Days Qty: 45 1RF metronidazole 500 mg tablet 500 mg PO BID 10 Days Qty: 20 0RF ciprofloxacin HCl 500 mg tablet 500 mg PO BID 10 Days Qty: 20 0RF magnesium oxide 400 mg magnesium tablet 400 mg PO DAILY 30 Days Qty: 30 1RF Stand Alone Forms: Work/School Release Print Language: Libyan
--- NOTE | 2023-07-05 11:22 | PC.NURSE ---
patient given a sandwich and paul kenyatta
[2023-07-05 14:25] VITALS: BP 146/101; PULSE 86; RESP 17; TEMP 37.3; O2SAT 96
== END 2023-07-05 14:26 | disposition home or self-care (01) ==
PROVIDERS: Emergency Provider Emergency Medicine; PCP Physician Assistant
DX: K57.32 Diverticulitis of large intestine without perforation or abscess without bleeding (principal); R11.2 Nausea with vomiting, unspecified; R19.7 Diarrhea, unspecified; R50.9 Fever, unspecified; Z11.52 Encounter for screening for COVID-19; Z20.822 Contact with and (suspected) exposure to COVID-19; Z79.899 Other long term (current) drug therapy
CPT/HCPCS: 80053; 82248; 83690; 85025; 87502; 87635; 99283; 99284

== ENCOUNTER 2023-10-18 13:10 | Emergency (ER) | payer OTHER, SELFPAY ==
--- NOTE | ~2023-10-18 | CT_ITS ---
EXAMINATION: CT ABDOMEN AND PELVIS WITH CONTRAST CLINICAL INFORMATION: Abdominal pain. Diarrhea. COMPARISON: 07/02/2023. TECHNIQUE: Multidetector volumetric images were obtained from the superior aspect of the liver through the pubic symphysis following administration 85 mL of Omnipaque 350 intravenous contrast. Sagittal and coronal reformatted images were obtained on the technologist's workstation. Oral contrast: No This CT examination was performed using dose optimization techniques as appropriate, variously including the following: *Automated exposure control *Adjustment of mA and/or kV according to patient size (this includes techniques or standardized protocols for targeted exams where dose is matched to indication/reason for exam; i.e. extremities or head) *Use of iterative reconstruction technique DLP: 404 mGy-cm FINDINGS: LUNG BASES: The visualized lung bases are unremarkable. LIVER, GALLBLADDER, AND BILIARY TREE: The liver is normal in size, shape, and attenuation. No focal hepatic lesion or biliary ductal dilatation is present. The gallbladder is unremarkable with no evidence of radiopaque gallstones, gallbladder wall thickening, or obvious pericholecystic inflammatory changes. PANCREAS: Unremarkable. SPLEEN: Unremarkable. ADRENAL GLANDS: Unremarkable. KIDNEYS AND URETERS: The kidneys are normal in size, shape, and attenuation. No hydronephrosis, hydroureter, or calculi seen. No perinephric stranding. There is a subcentimeter hypodensity lower pole left kidney. BLADDER: The urinary bladder is decompressed but does appear to be mildly thickened. GASTROINTESTINAL TRACT: There are fluid-filled minimally thickened large bowel loops throughout. There are a few diverticula of the descending colon without definitive associated diverticulitis. ABDOMINAL WALL: No significant hernia is appreciated. LYMPH NODES: Normal. VASCULAR: Unremarkable. PELVIC VISCERA: Unremarkable. OSSEOUS STRUCTURES: Unremarkable. CT/CT abdomen pelvis w IV con IMPRESSION: 1. There are fluid-filled minimally thickened large bowel loops throughout. This could be due to an infectious or inflammatory process/diarrheal disease. 2. There are a few diverticula of the descending colon without definitive associated diverticulitis. 3. The urinary bladder is decompressed but does appear to be mildly thickened. Correlation with urinalysis needed. Fleischner guidelines were followed.
--- NOTE | 2023-10-18 13:24 | ED.GENADULT ---
HPI - General Adult General Chief complaint: Nausea/Vomiting/Diarrhea Stated complaint: Vomiting, diarrhea Time Seen by Provider: 10/18/23 23:15 Source: patient Mode of arrival: ambulatory Limitations: no limitations History of Present Illness HPI narrative: 48 yo male with PMH Of GERD, prior normal colonoscopy, pelvic pain, intermittent bouts of diarrhea and LLQ pain here with 3 days of n/v/d and did see faint pink with one bout. He denies fevers, travel, food exposures, abx use. He did not vomit today but is still having diarrhea - no further pink or any blood noted. MD complaint: n/v/d Onset (ago): day(s) (3) Location: abdomen Radiation: non-radiation Severity: mild Quality: aching Pain Consistency: intermittent Relieving factors: none Exacerbating factors: eating Associated symptoms: loss of appetite Treatments prior to arrival: other (immodium but no relief) Related Data Previous Rx's Medication Instructions Recorded betamethasone, augmented 0.05 % 1 appl topical DAILY PRN skin 10/07/20 topical ointment (Diprolene irritation 30 days #45 grams (augmented)) lidocaine 5 % topical patch 1 patch topical DAILY #15 ea 09/25/22 acetaminophen 300 mg-codeine 30 mg 1 tab PO Q6H PRN pain 4 days #16 12/26/22 tablet tabs ciprofloxacin HCl 500 mg tablet 500 mg PO BID 10 days #20 tabs 12/26/22 cyclobenzaprine 10 mg tablet 10 mg PO BEDTIME 30 days #30 tabs 12/26/22 magnesium oxide 400 mg PO DAILY 30 days #30 tabs 12/26/22 metronidazole 500 mg tablet 500 mg PO BID 10 days #20 tabs 12/26/22 omeprazole 20 mg capsule,delayed 20 mg PO DAILY #90 caps 12/26/22 release dicyclomine 20 mg tablet 20 mg PO QID PRN abdominal pain 07/02/23 #20 tabs levofloxacin 500 mg tablet 500 mg PO DAILY #7 tabs 07/05/23 metronidazole 500 mg tablet 500 mg PO BID 7 days #14 tabs 07/05/23 ondansetron 4 mg disintegrating 4 mg PO Q8H PRN nausea and 07/05/23 tablet vomiting #20 tabs amoxicillin 875 mg-potassium 1 tab PO BID #14 tabs 10/19/23 clavulanate 125 mg tablet Allergies Allergy/AdvReac Type Severity Reaction Status Date / Time aspirin [ASPIRIN] Allergy Unknown ANAPHYLAXIS Verified 10/18/23 13:24 ibuprofen Allergy Unknown Anaphylaxis Verified 10/18/23 13:24 Review of Systems Review of Systems: Constitutional : No Weight loss, No Fever, No Chills ENT/Mouth : No sore throat, No Rhinorrhea Eyes: No Swelling, No Redness Cardiovascular : No Chest Pain, No SOB, NoEdema Respiratory : No Cough, No Sputum, No Wheezing Gastrointestinal : Positive Nausea, Positive Vomiting, positive Diarrhea, positive abdominal Pain, No Hematochezia, No Melena Genitourinary : No Dysuria, No Urinary Frequency, No Hematuria, No Urgency Musculoskeletal : No joint pain, No Myalgias, No Joint Swelling Skin : No Skin Lesions, No rash Neuro : No Weakness, No Numbness, No Dizziness, No Headache Psych : No Anxiety/Panic, No Depression Heme/Lymph: No Bruising, No Lymphadenopathy Endocrine : No Polyuria, No Polydipsia All other systems reviewed and are negative. [facility] Past Medical History Attestation statement: The following information was validated with the patient. Source: old records reviewed Medical History MDD (major depressive disorder), recurrent episode, mild Insomnia Bronchitis Right arm pain Surgical History History of drainage of abscess Family History Family History Father Diabetes Hypertension Mother No problems noted. Social History Social History Housing: House Alcohol intake: current Alcohol intake frequency: a few times a month Patient Tobacco Use Status: Never used Tobacco e-Cigarette/Vaping Use: Never Used Second Hand Smoke Exposure: No Substance Use Type: Marijuana Advance Directives: No Advance Directives Information Provided: No service: No Current occupational status: employed Current occupation: Work at [employer] Cognitive needs: No Hearing needs: No Vision needs: No Physical Exam ED Vital Signs: Vital Signs - 24 hr 10/18/23 13:25 10/18/23 23:19 Temperature 98 F 98.2 F Pulse Rate 97 64 Respiratory Rate 17 17 Blood Pressure 165/106 H 157/95 H Pulse Oximetry 98 97 Oxygen Delivery Method Room Air Room Air BMI result Body Mass Index 24.2 Appearance: Alert. Oriented X3. No acute distress. Eyes: Pupils equal, round and reactive to light. ENT: Pharynx dry MM Neck: Normal inspection. Neck supple. CVS: Normal heart rate and rhythm. Pulses normal. Respiratory: No respiratory distress. Breath sounds normal. Abdomen: Soft and mild LLQ ttp no rebound Skin: Skin warm and dry. Normal skin color. Normal skin turgor. Extremities: No lower extremity edema. No calf ttp Neuro: Oriented X 3. No motor deficit. No sensory deficit. Course Course Course Narrative: This is a rapid medical exam: Additional HPI, ROS, PE not included below will be deferred to primary provider. Patient is a 48-year-old male presenting to the ED with complaint of nausea, vomiting, and diarrhea as well as generalized abdominal pain since yesterday am. States vomiting has stopped today. Pain 5/10. Able to tolerate water. States he noted pink tinge in water with his diarrhea. Plan: viral swabs, UA, labs Medications Administered Discontinued Medications Generic Name Dose Route Start Last Admin Trade Name Freq PRN Reason Stop Dose Admin Sodium Chloride 1,000 mls @ 999 mls/hr 10/18/23 23:30 10/19/23 00:36 Ns IV 10/19/23 00:30 Infused .Q1H1M MELLISA Infusion Iohexol 85 ml 10/19/23 00:37 10/19/23 00:38 Iohexol 350 Mg/Ml 100 Ml Infus..Btl IV 10/19/23 00:38 85 ml ONCE ONE Administration Medical Decision Making Medical Decision Making [facility] Narrative: 48 yo male with PMH Of GERD, prior normal colonoscopy, pelvic pain, intermittent bouts of diarrhea and LLQ pain here with n/v/d and vomiting has resolved but still having diarrhea and some LLQ pain - had one episode of pink in bowl with stool but no rbian blood and it resolved at this time will obtain labs, CT scan for colitis/diverticulitis. Differential Diagnosis Differential Diagnoses: The differential diagnosis associated with the presentation includes colitis, diverticulitis Admission/Observation Consideration of admission/observation: Escalation of care including admission/observation considered labs stable, tolerating PO hx of same in past likely colitis vs diverticulitis CT read equivocal Lab Data [facility] Lab Attestation statement: I reviewed the patient's lab results. 10/18/23 13:54 10/18/23 13:54 Labs: Lab Results 10/18/23 10/18/23 Range/Units 13:54 20:59 WBC 4.6 L (4.8-10.8) X10*3/uL RBC 4.80 (4.60-5.80) X10*6/uL Hgb 14.4 (14.0-18.0) g/dl Hct 41.4 L (42.0-52.0) % MCV 86.3 (80.0-98.0) fL MCH 30.0 (27.0-33.0) pg MCHC 34.8 (31.0-36.0) g/dl RDW 12.3 (11.0-16.0) % Plt Count 267 (160-400) X10*3/uL MPV 9.0 L (9.4-12.4) fL Immature Gran % (Auto) 0.2 (0.0-0.4) % Neut % (Auto) 49.3 (45-73) % Lymph % (Auto) 36.0 (20-40) % [place] % (Auto) 9.0 (2-11) % Eos % (Auto) 4.4 H (0-4) % Baso % (Auto) 1.1 (0-2) % Lymph # (Auto) 1.7 (1.2-4.9) X10*3/uL [place] # (Auto) 0.4 (0.1-1.2) X10*3/uL Eos # (Auto) 0.2 (0.0-0.4) X10*3/uL Baso # (Auto) 0.1 (0.0-0.2) X10*3/uL Abs Immat Gran (auto) 0.01 (0.00-0.03) X10*3/uL Absolute Neuts (auto) 2.3 (2.0-8.3) x10*3/uL Absolute Nucleated RBC 0.000 (0.0-0.012) X10*3/uL Nucleated RBC % (auto) 0.0 (0.0-0.2) /100WBC Sodium 138 (135-145) mmol/L Potassium 4.3 (3.3-5.1) mmol/L Chloride 107 (96-108) mmol/L Carbon Dioxide 24 (22-29) mmol/L Anion Gap 11 L (12-20) BUN 12 (9-16) mg/dL Creatinine 0.92 (0.5-1.4) mg/dL Estim Creat Clear Calc 81.3 Estimated GFR > 60 Random Glucose 101 (60-115) mg/dL Calcium 9.6 (8.4-10.2) mg/dL Magnesium 2.2 (1.6-2.6) mg/dL Total Bilirubin 0.4 (0.0-1.0) mg/dL AST 16 (5-37) U/L ALT 17 (0-40) U/L Alkaline Phosphatase 87 (39-117) U/L Total Protein 8.1 H (6.5-8.0) g/dL Albumin 4.2 (3.5-5.0) g/dL Lipase 15 (8-78) U/L Urine Color Yellow Urine Appearance Clear Urine pH 5.5 (5.0-9.0) Ur Specific [place] 1.015 (1.005-1.025) Urine Protein Negative (Neg-Trace) mg/dL Urine Glucose (UA) Negative (Negative) mg/dL Urine Ketones Negative (Negative) mg/dL Urine Blood Moderate (2+) H (Negative) Urine Nitrite Negative (Negative) Ur Leukocyte Esterase Negative (Negative) Urine RBC 0-2 (0-2) /HPF Urine WBC 0-5 (0-5) /HPF Ur Squamous Epith Cells 0-2 (0-2) /HPF Urine Bacteria None Seen (None Seen) Hyaline Casts 0-2 (0-2) /LPF COVID-19 (ERIC) Negative (Negative) COVID-19 Clin Com See Note Influenza Type A (ANKIT) Negative (Negative) Influenza Type B (ANKIT) Negative (Negative) Influenza A & B Note See Note Independent Interpretation I performed an independent interpretation of an: CT Scan (inflammatory vs infectious) Radiology Impression Discussion of test interpretation with radiology: I have reviewed the radiologist's reading. External Record Review External record reviewed: Inpatient record Prescription Management I considered prescription management with: Antibiotic Discharge Plan Discharge Clinical Impression: Colitis, Diverticulitis Patient Disposition: Home, Self-Care Instructions: Diverticulitis (ED), Colitis (ED) Additional Instructions: bland diet for 24 hours return for worsening pain, fevers, vomiting, inability to eat or drink, worsening bleeding or any other concerns. On amoxicillin-clavulanate, softer bowel movements are to be expected. Call your provider if you move your bowels more than 4 times a day, your bowel movements are almost all liquid, or you get a rash.? Prescriptions: New amoxicillin-pot clavulanate 875-125 mg tablet 1 tab PO BID Qty: 14 0RF No Action omeprazole 20 mg capsule,delayed release(DR/EC) 20 mg PO DAILY Qty: 90 1RF cyclobenzaprine 10 mg tablet 10 mg PO BEDTIME 30 Days Qty: 30 0RF Rx Instructions: Uses 10 mg tablets during the night acetaminophen-codeine 300-30 mg tablet 1 tab PO Q6H PRN (Reason: pain) 4 Days Qty: 16 0RF lidocaine 5 % adhesive patch,medicated 1 patch topical DAILY Qty: 15 0RF Rx Instructions: leave on most painful area for up to 12 hrs ondansetron 4 mg tablet,disintegrating 4 mg PO Q8H PRN (Reason: nausea and vomiting) Qty: 20 0RF metronidazole 500 mg tablet 500 mg PO BID 7 Days Qty: 14 0RF levofloxacin 500 mg tablet 500 mg PO DAILY Qty: 7 0RF dicyclomine 20 mg tablet 20 mg PO QID PRN (Reason: abdominal pain) Qty: 20 0RF betamethasone, augmented [Diprolene (augmented)] 0.05 % ointment 1 appl topical DAILY PRN (Reason: skin irritation) 30 Days Qty: 45 1RF metronidazole 500 mg tablet 500 mg PO BID 10 Days Qty: 20 0RF ciprofloxacin HCl 500 mg tablet 500 mg PO BID 10 Days Qty: 20 0RF magnesium oxide 400 mg magnesium tablet 400 mg PO DAILY 30 Days Qty: 30 1RF Referrals: Joe Reid MD [Physician] - (call to schedule appointment) Print Language: Wolof
[2023-10-18 13:25] VITALS: BP 165/106; PULSE 97; RESP 17; TEMP 36.6; O2SAT 98; BMI 24.2
[2023-10-18 13:58] LABS: MANUAL DIFF FLAG NO
[2023-10-18 14:04] LABS: Basophils Absolute Auto 0.1 X10*3/uL (0.0-0.2); Basophils Percent Auto 1.1 % (0-2); Eosinophils Absolute Auto 0.2 X10*3/uL (0.0-0.4); Eosinophils Percent Auto 4.4 % (0-4); Hematocrit 41.4 % (42.0-52.0); Hemoglobin 14.4 g/dl (14.0-18.0); Imm Gran Abs Auto 0.01 X10*3/uL (0.00-0.03); Imm Gran Pct Auto 0.2 % (0.0-0.4); Lymphocytes Absolute Auto 1.7 X10*3/uL (1.2-4.9); Mean Corpuscular HGB Conc 34.8 g/dl (31.0-36.0); Mean Corpuscular Volume 86.3 fL (80.0-98.0); Monocytes Absolute Auto 0.4 X10*3/uL (0.1-1.2); Neutrophils Absolute Auto 2.3 x10*3/uL (2.0-8.3); Neutrophils Percent Auto 49.3 % (45-73); Platelet Count 267 X10*3/uL (160-400); Red Cell Distribution Width 12.3 % (11.0-16.0); White Blood Count 4.6 X10*3/uL (4.8-10.8)
[2023-10-18 14:12] LABS: Alanine Aminotransferase 17 U/L (0-40); Albumin Level 4.2 g/dL (3.5-5.0); Alkaline Phosphatase 87 U/L (39-117); Anion Gap 11 (12-20); Aspartate Amino Transferase 16 U/L (5-37); Bilirubin Total 0.4 mg/dL (0.0-1.0); Blood Urea Nitrogen 12 mg/dL (9-16); Calcium 9.6 mg/dL (8.4-10.2); Carbon Dioxide 24 mmol/L (22-29); Chloride 107 mmol/L (96-108); Creatinine Clr Calc Pharmacy 81.3; Estimated Glomerular Filt Rate > 60; Glucose Random 101 mg/dL (60-115); Magnesium 2.2 mg/dL (1.6-2.6); Potassium 4.3 mmol/L (3.3-5.1); Sodium 138 mmol/L (135-145); Total Protein 8.1 g/dL (6.5-8.0)
[2023-10-18 14:16] LABS: COVID-19 Test Negative (Negative); IDNOW Serial# 08D9AD1C; IDNOW Serial# 152EDE1D; Influenza A Negative (Negative); Influenza B2 Negative (Negative)
[2023-10-18 21:12] LABS: Appearance Urine Clear; Color Urine Yellow; Glucose Urine UA Negative (Negative); Leukocyte Esterase Urine Negative (Negative); Nitrite Urine Negative (Negative); PH 5.5 (5.0-9.0); Specific Gravity - Urine 1.015 (1.005-1.025); UMIC TRIGGER UACC YES; Urine Blood Moderate (2+) (Negative); Urine Ketones Negative (Negative); Urine Protein Negative (Neg-Trace)
[2023-10-18 21:23] LABS: Bacteria Urine None Seen (None Seen); Hyaline Casts Urine 0-2 /LPF (0-2); RBC Urine 0-2 /HPF (0-2); Squamous Epithelial Cell Urine 0-2 /HPF (0-2); WBC Urine 0-5 /HPF (0-5)
[2023-10-18 23:19] VITALS: BP 157/95; PULSE 64; RESP 17; TEMP 36.8; O2SAT 97
[2023-10-18 23:27] LABS: Lipase 15 U/L (8-78)
[2023-10-18] MEDS: 0.9 % Sodium Chloride 1,000 ML 999 ML IV (23:27)
[2023-10-19] MEDS: iohexoL 350 MG/ML 100 ML INFUS..BTL 85 ML IV (00:38)
== END 2023-10-19 03:13 | disposition home or self-care (01) ==
PROVIDERS: Registered Nurse Emergency; Emergency Provider Emergency Medicine; PCP Physician Assistant
DX: K57.92 Diverticulitis of intestine, part unspecified, without perforation or abscess without bleeding (principal); K52.9 Noninfective gastroenteritis and colitis, unspecified; Z11.52 Encounter for screening for COVID-19
CPT/HCPCS: 36415; 74177; 80053; 81001; 83690; 83735; 85025; 87502; 87635; 96360; 99284; Q9967